=== PATIENT | male | born 1980 | race Caucasian/White ===

== ENCOUNTER 2024-01-09 12:01 | Emergency (ER) | payer BC, SELFPAY ==
[2024-01-09 12:05] VITALS: BP 125/80
--- NOTE | 2024-01-09 13:58 | ED.GENMED ---
History of Present Illness
General
Chief Complaint: Male Genito-Urinary Symptoms
Time Seen by Provider: 01/09/24 12:53
Travel History
Have you had any contact with someone who has COVID-19?: No
Do you have any symptoms of coronavirus? Fever > 100 degrees, chills, cough, shortness of breath, sore throat, loss of taste or smell, muscle aches, or headache?: No
History of Present Illness
History of Present Illness:
43-year-old male presents to the emergency department for evaluation of right-sided testicular pain and swelling that developed again last night. He initially had similar symptoms 2 weeks ago and was seen by his primary care physician, was
prescribed a 7-day course of Bactrim. He states his symptoms resolved until last night. Saw his primary care physician again this morning and was sent to the ER to rule out torsion. Denies any fever, chills, sweats. Denies any concern for
sexually transmitted infection
Past History
Past History
ED Past Medical History: Other (Takes Effexor)
ED Past Surgical History: None
Social History
Tobacco: Smoker
Alcohol: None
Drug: None
Review of Systems
Review of Systems
Allergies reviewed?: Yes
All Other Systems: ROS reviewed and negative except as documented in HPI and ROS
Phy Exam
Physical Exam
Physical Exam:
GEN: Well appearing, NAD, WDWN
HEENT: Oral mucosa moist, no scleral icterus
Cardiac: Regular rate
Lung: No respiratory distress, no tachypnea
: Tenderness to the right epididymis, no obvious epididymal swelling, borderline swelling/edema of the right hemiscrotum with no skin erythema, no inguinal hernia, no adenopathy
MSK: No gross deformity or injuries
Skin: Good color, no pallor or jaundice, no rashes
Neuro: AO x3, moves all extremities freely
Psych: Calm, cooperative
Course
Orders/Labs/Results
Orders:
Orders
01/09/24 12:08
US Scrotum Urgent
Comment:
Reason For Exam: R testicular pain and swelling
01/09/24 14:00
Ketorolac [Toradol] 30 mg IM NOW STA
01/09/24 14:45
Urinalysis Urgent
Date Specimen was Collected: 01/09/24
Time Specimen was Collected: 14:19
Chlamydia/GC by PCR Urgent
[facility] Source: Urine
Specimen Description:
Source:: URINE
Date Specimen was Collected: 01/09/24
Time Specimen was Collected: 14:19
Urine Culture Urgent
[facility] Source: Urine
Specimen Description:
Obtained by: [facility]
Date Specimen was Collected: 01/09/24
Time Specimen was Collected: 14:19
Vital Signs
Initial and Last Documented VS:
Initial Vital Signs
Temp Pulse Resp BP Pulse Ox
98 F 68 18 125/80 97
01/09/24 12:05 01/09/24 12:05 01/09/24 12:05 01/09/24 12:05 01/09/24 12:05
Last Documented Vital Signs
Temp Pulse Resp BP Pulse Ox
98 F 71 16 124/75 96
01/09/24 12:05 01/09/24 14:15 01/09/24 14:15 01/09/24 14:15 01/09/24 14:15
MDM/Problems Addressed
MDM/Problems Addressed:
Suspect the symptoms are recurrent in the setting of inadequate duration of therapy, ultrasound is reassuring. Patient does have focal epididymal tenderness. Did start levofloxacin for 10-day course due to potential for resistant infection from
inadequate recent therapy. No evidence for torsion. Given his focal tenderness do not suspect that this is referred pain from an intra-abdominal etiology such as kidney stone particular given lack of hematuria
*Critical Care Note
Total Time (30-74mins, 75-104mins- exclusive of procedures): Not Applicable
ED Attending Note
-
Portions of this chart may have been created with voice recognition software.� Occasional wrong word or��sound alike� substitutions may have occurred due to the inherent limitations of voice recognition software.
Discharge Plan
Departure
Patient Disposition: Home (Routine Discharge)
Date of Disposition: 01/09/24
Time of Disposition: 14:52
Patient with high blood pressure during this ER visit?: No
Discharge Problem:
Acute epididymitis
Prescriptions:
New
levofloxacin 750 mg tablet
750 mg PO DAILY Qty: 10 0RF
No Action
No Meds
Referrals:
Abraham Villalpando MD [Family Provider] -
Interventions
Interventions:
*Risk Screen - Suicide Last Done: 01/09/24 12:05
*General Assessment Last Done: 01/09/24 12:05
*Neglect/Abuse Screening Last Done: 01/09/24 12:05
*Nursing Disposition Last Done: 01/09/24 15:04
ED-Male Genitourinary Assessment Last Done: 01/09/24 15:03
Discharge Date and Time
Discharge Date/Time: 01/09/24 15:04
Print Language: CHINESE
[2024-01-09] MEDS: TORADOL 30 MG IM (14:09)
[2024-01-09 14:15] VITALS: BP 124/75
[2024-01-09 14:56] LABS: Urine Albumin Negative (Neg - Trace); Urine Bilirubin Negative (Negative); Urine Character Clear (Clear); Urine Color Yellow; Urine Glucose Negative (Negative); Urine Ketone Negative (Negative); Urine Leukocyte Negative (Negative); Urine Nitrite Negative (Negative); Urine Occult Blood Negative (Negative); Urine Urobilinogen Negative (Neg - 1+)
== END 2024-01-09 15:04 | disposition home or self-care (01) ==
LOC: EMR 12:01
PROVIDERS: Physician Assistant; EMERGENCY PHYSICIAN Emergency Medicine; FAMILY PHYSICIAN Family Medicine
DX: N45.1 Epididymitis (principal)
CPT/HCPCS: 99284; 96372; 76870; 81003; 87086; 87491; 87591; 93976